=== PATIENT | female | born 1960 | race Caucasian/White ===

== ENCOUNTER 2017-03-23 06:14 | Day surgery (SDC) | payer OTHER ==
[~2017-03-23 06:14] MED LIST: LACTATED RINGER'S 1,000 ML IV*
[2017-03-23] MEDS ORDERED: FENTAnyl 50 MCG/ML VIAL (06:46)
[2017-03-23] MEDS ORDERED: LIDOCAINE 2% (SDV) 5 ML INJ (06:48)
[2017-03-23] MEDS ORDERED: PROPOFOL 20 ML (06:48)
[2017-03-23] MEDS ORDERED: DEXTROSE 50% 50 ML SYRINGE (06:49)
[2017-03-23] MEDS ORDERED: ONDANSETRON 4 MG INJ (06:49)
[2017-03-23] MEDS ORDERED: DEXAMETHASONE 4 MG/ML 1 ML INJ (06:50)
[2017-03-23] MEDS ORDERED: METOCLOPRAMIDE 10 MG INJ IV (07:30)
[2017-03-23] MEDS ORDERED: CEFAZOLIN 1 GM INJ (08:10)
[2017-03-23] MEDS ORDERED: EPHEDrine SULFATE 50 MG/5 ML SYG (09:02)
[2017-03-23] MEDS ORDERED: SUGAMMADEX SODIUM 200 MG/2 ML VIAL IV (09:04)
[2017-03-23] MEDS: HYDROmorphONE (0.2 MG/ML) 10ML SYG IV ×3 (09:37→09:48)
[2017-03-23] MEDS: ONDANSETRON 4 MG INJ IV (09:37)
[2017-03-23] MEDS: KETOROLAC 30 MG INJ IV (09:37)
[2017-03-23] MEDS: FENTAnyl 50 MCG/ML VIAL IV (09:48)
[2019-03-23] MEDS ORDERED: ROCURONIUM BROMIDE 10 MG/ML VIAL IV (02:06)
== END 2017-03-23 11:08 | disposition home or self-care (01) ==
LOC: SDS 06:14
DX: N84.0 Polyp of corpus uteri (principal); I10 Essential (primary) hypertension
CPT/HCPCS: 58558; 88305